=== PATIENT | female | born 1980 | race American Indian/Alaskan Native ===

== ENCOUNTER 2019-01-16 18:14 | Emergency (ER) | payer OTHER ==
--- NOTE | 2019-01-16 19:05 | Event Note ---
ED Screening Note Date of service: 01/16/19 Time: 18:56 ED Screening Note: 38 y/o female comes in for HTN and SOB. Hx/o thyroid, HTN This initial assessment/diagnostic orders/clinical plan/treatment(s) is/are subject to change based on patients health status, clinical progression and re-assessment by fellow clinical providers in the ED. Further treatment and workup at subsequent clinical providers discretion. Patient/guardian urged not to elope from the ED as their condition may be serious if not clinically assessed and managed. Initial orders include:
--- NOTE | 2019-01-16 19:26 | XRay Report ---
CHEST 2 VIEWS INDICATION / CLINICAL INFORMATION: sob. COMPARISON: None available. FINDINGS: SUPPORT DEVICES: None. HEART / MEDIASTINUM: Cardiac silhouette is enlarged with normal pulmonary vascularity LUNGS / PLEURA: No significant pulmonary or pleural abnormality. No pneumothorax. ADDITIONAL FINDINGS: No significant additional findings. IMPRESSION: 1. Cardiomegaly without CHF Signer Name: Edison Gold MD Signed: 01/16/2019 7:22 PM Workstation Name: [id number]
[2019-01-16 19:47] LABS: Alanine Aminotransferase 87 units/L (7-56); Albumin 4.2 g/dL (3.9-5); BUN/Creatinine Ratio 13; Basophils # (Auto) 0.1 K/mm3 (0.0-0.1); Basophils % (Auto) 1.2 % (0.0-1.8); Blood Urea Nitrogen 9 mg/dL (7-17); Calcium 9.8 mg/dL (8.4-10.2); Eosinophils # (Auto) 0.3 K/mm3 (0.0-0.4); Eosinophils % (Auto) 3.5 % (0.0-4.3); Hematocrit 32.3 % (30.3-42.9); Hemoglobin 10.4 gm/dl (10.1-14.3); Hemolysis Index 9; Lymphocytes # (Auto) 3.1 K/mm3 (1.2-5.4); Lymphocytes % (Auto) 36.2 % (13.4-35.0); Mean Corpuscular HGB Conc 32 % (30-34); Mean Corpuscular Volume 74 fl (79-97); Monocytes # (Auto) 0.5 K/mm3 (0.0-0.8); Monocytes % (Auto) 6.2 % (0.0-7.3); Platelet Count 356 K/mm3 (140-440); Red Blood Count 4.35 M/mm3 (3.65-5.03); Red Cell Distribution Width 17.9 % (13.2-15.2)
[2019-01-16] MEDS ORDERED: IBUPROFEN PO ONE (20:57)
[2019-01-16] MEDS ORDERED: NORVASC PO ONE (20:57)
--- NOTE | 2019-01-16 21:02 | Emergency Department Report ---
HPI - General Chief Complaint: High BP Time Seen by Provider: 01/16/19 19:28 - HPI HPI: 38-year-old female presents to the emergency department with complaint of some elevated blood pressure over the past 2 days. It is associated with a mild throbbing headache. Patient says that she has never been diagnosed with hypertension but was on HCTZ one time in the past secondary to some lower extremity swelling and "fluid around my heart." She has since been taken off that medication. The patient has a previous history of hyperthyroidism received some radiation therapy for that and now is hypothyroid on 250 g of Synthroid. Patient says that her blood pressure reached a max of 150/132 but improves when she is laying down and resting and goes back up with any type of exertion or activity. Her primary care physician is a Dr. Maria A Echeverria and she has an appointment on March 03. The patient has not taken anything for her symptoms prior to presentation today. No recent travel or sick contacts at home. She denies any tobacco or illicit drug use. ED Past Medical Hx - Past Medical History Previous Medical History?: Yes Additional medical history: hyperthyroid turned hypothyriod due to radiation - Surgical History Past Surgical History?: No - Social History Smoking Status: Never Smoker Substance Use Type: None - Medications Home Medications: Home Medications Medication Instructions Recorded Confirmed Last Taken Type amLODIPine [Norvasc] 5 mg PO DAILY #30 tab 01/16/19 Unknown Rx ED Review of Systems ROS: Stated complaint: HYPERTENSION Other details as noted in HPI Comment: All other systems reviewed and negative Constitutional: denies: chills, fever Eyes: denies: eye pain, vision change ENT: denies: ear pain, throat pain Respiratory: denies: cough, shortness of breath Cardiovascular: denies: palpitations, edema Gastrointestinal: denies: abdominal pain, vomiting Genitourinary: denies: urgency, dysuria Musculoskeletal: denies: back pain, arthralgia Skin: denies: rash, lesions Neurological: headache. denies: weakness, numbness, paresthesias, confusion Physical Exam - Physical Exam Vital Signs: Vital Signs 01/16/19 01/16/19 19:02 20:48 Temperature 98.2 F Pulse Rate 100 H 87 Respiratory 16 16 Rate Blood Pressure 137/104 129/87 [Right] O2 Sat by Pulse 99 99 Oximetry Physical Exam: GENERAL: The patient is well-developed well-nourished. HENT: Normocephalic. Atraumatic. Patient has moist mucous membranes. EYES: Extraocular motions are intact. Pupils equal reactive to light bilaterally. NECK: Supple. Trachea is midline. CHEST/LUNGS: Clear to auscultation. There is no respiratory distress noted. HEART/CARDIOVASCULAR: Regular. There is no tachycardia. There is no murmur. ABDOMEN: Abdomen is soft, nontender. Patient has normal bowel sounds. There is no abdominal distention. SKIN: Skin is warm and dry. No lower extremity edema. NEURO: The patient is awake, alert, and oriented. The patient is cooperative. The patient has no focal neurologic deficits. The patient has normal speech. Cranial nerves II through XII grossly intact. MUSCULOSKELETAL: There is no tenderness or deformity. There is no limitation r codey of motion. There is no evidence of acute injury. ED Course Vital Signs 01/16/19 01/16/19 19:02 20:48 Temperature 98.2 F Pulse Rate 100 H 87 Respiratory 16 16 Rate Blood Pressure 137/104 129/87 [Right] O2 Sat by Pulse 99 99 Oximetry ED Medical Decision Making - Lab Data Result diagrams: 01/16/19 19:11 01/16/19 19:11 - EKG Data -: EKG Interpreted by Pa EKG shows normal: sinus rhythm, axis, intervals, QRS complexes (Q waves to the septal leads), ST-T waves Rate: normal - EKG Data When compared to previous EKG there are: previous EKG unavailable Interpretation: other (Q waves to the septal leads) - Medical Decision Making This patient was sent to the emergency department with a complaint of a few days of some elevated blood pressure readings. She does have some questionable previous history of hypertension. She complains of a very mild headache. No signs of any focal, motor or sensory deficits and her cranial nerves are intact. Labs have been unremarkable including no significant thyroid dysfunction. EKG did not show any signs of ST elevation [place] or dysrhythmia. Patient was given a dose of amlodipine and some ibuprofen and upon reevaluation she is asymptomatic. Her blood pressure came down to a normal level. For all these reasons, the p atient appears safe for discharge home. She has good follow-up with primary care. She will be started on a medium dose of Norvasc and will keep a blood pressure log. She will return to the emergency Department with any worsening of her symptoms or any acute distress. - Differential Diagnosis hypertension, tension headache, migraine, subarachnoid Critical Care Time: No Critical care attestation.: If time is entered above; I have spent that time in minutes in the direct care of this critically ill patient, excluding procedure time. ED Disposition Clinical Impression: Elevated blood pressure reading, Hypertension Disposition: TO HOME OR SELFCARE Is pt being admited?: No Condition: Stable Instructions: Hypertension (ED) Additional Instructions: Please follow-up with your primary care physician in the next few days. Return to the emergency Department with any worsening of your symptoms or any acute distress. I am starting on a blood pressure medication called Norvasc/amlodipine with a medium dose of 5 mg. This medication is taken once daily, usually in the morning. Keep a blood pressure log. Prescriptions: amLODIPine [Norvasc] 5 mg PO DAILY #30 tab Referrals: ANDREW ECHEVERRIA MD [Referring] - 2-3 Days Forms: Work/School Release Form(ED) Time of Disposition: 22:54
[2019-01-16 23:14] VITALS: BP 121/88
== END 2019-01-16 23:09 | disposition home or self-care (01) ==
LOC: ED 18:14
DX: I10 Essential (primary) hypertension (principal); Z88.1 Allergy status to other antibiotic agents
CPT/HCPCS: 36415; 71046; 80053; 83880; 84439; 84443; 84484; 85025; 93005; 93010

== ENCOUNTER 2019-09-21 17:47 | Emergency (ER) | payer SELFPAY ==
[2019-09-21] MEDS ORDERED: ALPRAZolam 0.5 MG TAB PO ONE (20:18)
[2019-09-21] MEDS ORDERED: ACETAMINOPHEN 325 MG TAB PO ONE (20:18)
[2019-09-21] MEDS ORDERED: IBUPROFEN 600 MG TAB PO ONE (20:18)
--- NOTE | 2019-09-21 20:19 | Emergency Department Report ---
ED General Adult HPI - General Chief complaint: Anxiety Stated complaint: CHEST PAIN/ANXIETY ATTACK Time Seen by Provider: 09/21/19 20:09 Source: patient, RN notes reviewed, old records reviewed Mode of arrival: Ambulatory Limitations: No Limitations - History of Present Illness Initial comments: The patient is a 38-year-old female. She is not known to myself previously. She follows with a Dr. Hammer. She is currently on Synthroid, and recently had her dose increased to 300 mcg daily. She has a history of obesity, anxiety, and possible elevated blood pressure. She presents to the ER with a complaint of nontraumatic left-sided chest wall pressure and discomfort, anxiety. There is no vomiting, diaphoresis. She is not , and has not delivered or given within the past 6 weeks. She denies DVT and pulmonary embolism risk factors. She saw her primary care doctor last month for her thyroid. She does get at least 8 hours of sleep per day, but reports consuming caffeine and energy drinks occasionally. She denies fever, nausea, vomiting, abdominal pain, urinary symptoms, she is not homicidal, she is not suicidal, chest wall pain is sharp, throbbing and aching, increases with palpation, range of motion, and it decreases with rest. -: Gradual, days(s) Location: chest Radiation: other Quality: other Consistency: other Improves with: other Worsens with: other Associated Symptoms: other - Related Data Previous Rx's Medication Instructions Recorded Last Taken Type amLODIPine [Norvasc] 5 mg PO DAILY #30 tab 01/16/19 Unknown Rx Allergies Allergy/AdvReac Type Severity Reaction Status Date / Time ciprofloxacin [From Cipro] Allergy Angioedema Verified 09/21/19 17:57 ED Review of Systems ROS: Stated complaint: CHEST PAIN/ANXIETY ATTACK Other details as noted in HPI Constitutional: denies: fever Eyes: denies: eye discharge ENT: denies: congestion Respiratory: denies: shortness of breath Cardiovascular: other (No syncope . Chest wall pain,) Gastrointestinal: denies: nausea, vomiting Genitourinary: as per HPI Musculoskeletal: as per HPI Skin: as per HPI Neurological: as per HPI Psychiatric: as per HPI, anxiety. denies: auditory hallucinations, visual hallucinations, homicidal thoughts, suicidal thoughts Hematological/Lymphatic: as per HPI ED Past Medical Hx - Past Medical History Previous Medical History?: Yes Additional medical history: hyperthyroid turned hypothyriod due to radiation - Surgical History Past Surgical History?: No - Social History Smoking Status: Never Smoker Substance Use Type: None - Medications Home Medications: Home Medications Medication Instructions Recorded Confirmed Last Taken Type amLODIPine [Norvasc] 5 mg PO DAILY #30 tab 01/16/19 Unknown Rx ED Physical Exam - General Limitations: No Limitations General appearance: alert, anxious, obese - Head Head exam: Present: atraumatic, normocephalic - Eye Eye exam: Present: normal appearance, EOMI, other (Visual acuity intact to finger counting, color perception, reading at a close distance). Absent: nystagmus - ENT ENT exam: Present: normal exam, normal orophraynx, mucous membranes moist, normal external ear exam - Neck Neck exam: Present: normal inspection, full ROM. Absent: tenderness, meningismus - Respiratory Respiratory exam: Present: normal lung sounds bilaterally, chest wall tenderness, other (During the entire history and physical examination, application security developer/escorted by nurse Barb Sargent). Absent: respiratory distress, wheezes, rales, rhonchi, stridor - Cardiovascular Cardiovascular Exam: Present: regular rate, normal rhythm, normal heart sounds. Absent: bradycardia, tachycardia, irregular rhythm, systolic murmur, diastolic murmur, rubs, gallop - GI/Abdominal GI/Abdominal exam: Present: soft, normal bowel sounds. Absent: distended, tenderness, guarding, rebound, rigid, pulsatile mass - Extremities Exam Extremities exam: Present: normal inspection, full ROM, other (2+ pulses noted in the bilateral upper and lower extremities. There is no palpable cord. negative Homans sign. Muscular compartments are soft. The pelvis is stable.). Absent: pedal edema, joint swelling, calf tenderness - Back Exam Back exam: Present: normal inspection, full ROM. Absent: tenderness, CVA tenderness (R), CVA tenderness (L), paraspinal tenderness, vertebral tenderness - Neurological Exam Neurological exam: Present: alert, oriented X3, normal gait, other (There is no facial droop. The tongue is midline. Extraocular movements are intact bilaterally. There is 5 out of 5 strength in bilateral upper and lower extremities. Sensation is intact to light touch bilateral upper and lower extremities. There is a normal gait.). Absent: motor sensory deficit - Psychiatric Psychiatric exam: Present: anxious. Absent: homicidal ideation, suicidal ideation - Skin Skin exam: Present: warm, dry, intact, normal color. Absent: rash ED Course Vital Signs 09/21/19 09/21/19 17:52 20:19 Temperature 97.7 F Pulse Rate 80 73 Respiratory 18 16 Rate Blood Pressure 145/92 120/84 O2 Sat by Pulse 100 100 Oximetry ED Medical Decision Making - Lab Data Vital Signs 09/21/19 09/21/19 17:52 20:19 Temperature 97.7 F Pulse Rate 80 73 Respiratory 18 16 Rate Blood Pressure 145/92 120/84 O2 Sat by Pulse 100 100 Oximetry - EKG Data 09/21/19 20:57 EKG today is unchanged from prior EKG from January 2019 Sinus rhythm, 68 bpm, normal axis, normal intervals, motion artifact, unchanged from prior EKG, not a STEMI - Medical Decision Making Differential diagnosis, including but not limited to: Anxiety, costochondritis Assessment and plan: 38-year-old female, with no DVT or pulmonary embolism risk factors, who is low risk by Wells criteria, who is not currently tachycardic, ta chypneic, or hypoxic, perc negative, with a complaint of anxiety, and reproducible chest wall pain. EKG is unchanged from prior. Her chest wall pain is reproducible without evidence of redness, pus or streaking. She is not homicidal or suicidal, she is clinically sober, alert and oriented x3, walking with a steady gait, and exhibits decision-making capacity. Explained to the patient that she likely has costochondritis. We discussed NSAIDs and Tylenol as needed for pain. The patient presented to this hospital for similar presentation in January 2019, and had an unremarkable cardiac re-stratification while in the emergency room. In terms of the patient's anxiety, we offered to treat her symptoms with Xanax. Educated patient's that there is no emergency room indication for thyroid screen ing tests at this time, as her symptoms are not consistent with symptomatic hypothyroidism, and she also reported having her thyroid checked last month by her primary care doctor, and had her Synthroid increased. The patient does not appear to have an emergency medical condition at this time. She left the emergency room prior to receiving her paperwork. Critical care attestation.: If time is entered above; I have spent that time in minutes in the direct care of this critically ill patient, excluding procedure time. ED Disposition Clinical Impression: Chest wall pain, History of anxiety, History of hypothyroidism Disposition: DC-01 TO HOME OR SELFCARE Is pt being admited?: No Does the pt Need Aspirin: No Condition: Stable Additional Instructions: Patient may take [id number] Tylenol, 650 mg by mouth, every 4-6 hours, as needed for pain, alternating with ibuprofen, 600 mg by mouth, every 6 hours with food, as needed for pain. We recommend that the patient continue her current outpatient medications, and follow-up with her primary care doctor within the next 2 to 4 weeks. Please return to the emergency room right away with new, worsened or different symptoms, or symptoms not present on the initial emergency room evaluation. Referrals: DIMPLE HAMMER SR, MD [Referring] - as needed MEHRAN CEBALLOS MD [Staff Physician] - as needed
[2019-09-21 20:21] VITALS: BP 120/84
== END 2019-09-21 21:00 | disposition home or self-care (01) ==
LOC: ED 17:47
DX: R07.89 Other chest pain (principal); F41.9 Anxiety disorder, unspecified; E03.9 Hypothyroidism, unspecified
CPT/HCPCS: 93005; 93010; 99283

== ENCOUNTER 2020-10-24 12:47 | Emergency (ER) | payer BC ==
--- NOTE | 2020-10-24 14:04 | Event Note ---
ED Screening Note Date of service: 10/24/20 Time: 14:01 ED Screening Note: 39 y/o female pt w/ hx of uterine fibroids, anemia requiring blood transfusion, hyperthyroidism, and venous thromboembolism (not currently anticoagulated) presents to the emergency department with complaints of painless vaginal bleeding x2 days. PCP instructed pt to come to the ER. Endorses generalized weakness. State her symptoms are reminiscent of when she was previously hospitalized for anemia. Menstrual cycles irregular at baseline. General: Awake, appropriately interactive, no acute distress. Neck: Supple. Full range of motion intact. Cardiovascular: Normal peripheral perfusion. Pulmonary: No respiratory distress. Patient is speaking normally without use of accessory muscles. Skin: No apparent rashes or lesions. Neurological: No facial asymmetry. Speech is clear. Follows commands. Patient is alert and oriented. Musculoskeletal: Moves all four extremities spontaneously with normal range of motion. Psych: Cooperative. Appropriate mood and affect. I have greeted and performed a focused rapid initial assessment of this patient. A comprehensive ED assessment and evaluation of the patient, analysis of all test results, and completion of the medical decision-making process will be conducted by additional ED providers. This initial assessment/diagnostic orders/clinical plan/treatment(s) is/are subject to change based on patients health status, clinical progression and re-assessment. Further treatment and workup at subsequent clinical provider's discretion. Patient/guardian urged not to elope from the ED as their condition may be serious if not clinically assessed and managed.
[2020-10-24 14:57] VITALS: BP 141/92
[2020-10-24 15:03] LABS: Basophils # (Auto) 0.1 K/mm3 (0.0-0.1); Eosinophils # (Auto) 0.4 K/mm3 (0.0-0.4); Eosinophils % (Auto) 4.8 % (0.0-4.3); INR 0.98 (0.87-1.13); Monocytes # (Auto) 0.3 K/mm3 (0.0-0.8); Monocytes % (Auto) 3.1 % (0.0-7.3)
--- NOTE | 2020-10-24 15:03 | Emergency Department Report ---
HPI - General Chief Complaint: Vaginal Bleeding Time Seen by Provider: 10/24/20 14:30 - HPI HPI: This is a 39-year-old female who presents to the emergency department with complaint of a 2-day history of heavy vaginal bleeding with some clots. The patient also has some mild pelvic cramping. Patient says that she was admitted to [facility] for 4 days, about 6 months ago, for issues regarding heavy vaginal bleeding. However the patient is unsure what the ultimate diagnosis was. She says that she had some low hemoglobin at that time but "they were able to get my levels back up before they had to give me a transfusion." Patient does admit to a history of anemia. She also has a history of [id number] diabetes and hypothyroidism. She called and spoke with her primary care physician, Dr. Iglesias, regarding this vaginal bleeding and was told to come to the emergency department for further evaluation. She denies any fever, chest pain or shortness of breath, lower extremity swelling, vaginal discharge, dysuria, rectal bleeding. She does admit to some generalized weakness and/or fatigue. She has not taken anything for symptoms prior to presentation. The patient says that she has not had a menstrual cycle in about 6 months secondary to her thyroid issues. 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 - Surgical History Past Surgical History?: Yes Additional Surgical History: Thyroid - Social History Smoking Status: Former Smoker Substance Use Type: None - Medications Home Medications: Home Medications Medication Instructions Recorded Confirmed Last Taken Type amLODIPine [Norvasc] 5 mg PO DAILY #30 tab 01/16/19 Unknown Rx Nitrofurantoin [place]/M-Cryst 100 mg PO Q12HR #14 capsule 10/24/20 Unknown Rx [Macrobid CAP] medroxyPROGESTERone ACETATE 10 mg PO QDAY #7 tablet 10/24/20 Unknown Rx [Provera] ED Review of Systems ROS: Stated complaint: VAGINAL BLEEDING Other details as noted in HPI Comment: All other systems reviewed and negative Constitutional: weakness. denies: chills, fever Eyes: denies: eye pain, vision change ENT: denies: ear pain, throat pain Respiratory: denies: cough, shortness of breath Cardiovascular: denies: chest pain, palpitations Gastrointestinal: denies: abdominal pain, vomiting Genitourinary: abnormal menses, other (Pelvic cramping). denies: dysuria, discharge Musculoskeletal: denies: back pain, arthralgia Skin: denies: rash, lesions Neurological: denies: headache, weakness Physical Exam - Physical Exam Vital Signs: Vital Signs 10/24/20 10/24/20 14:01 14:55 Temperature 98 F 968 F H Pulse Rate 63 71 Respiratory 20 13 Rate Blood Pressure 135/103 Blood Pressure 141/92 [Right] O2 Sat by Pulse 99 100 Oximetry Physical Exam: GENERAL: The patient is well-developed well-nourished. HENT: Normocephalic. Atraumatic. Patient has moist mucous membranes. EYES: Extraocular motions are intact. NECK: Supple. Trachea is midline. CHEST/LUNGS: Clear to auscultation. There is no respiratory distress noted. HEART/CARDIOVASCULAR: Regular. There is no tachycardia. There is no murmur. ABDOMEN: Abdomen is soft, nontender. Patient has normal bowel sounds. There is no abdominal distention. SKIN: Skin is warm and dry. NEURO: The patient is awake, alert, and oriented. The patient is cooperative. The patient has no focal neurologic deficits. Normal speech. MUSCULOSKELETAL: There is no tenderness or deformity. There is no limitation range of motion. ED Course Vital Signs 10/24/20 10/24/20 14:01 14:55 Temperature 98 F 968 F H Pulse Rate 63 71 Respiratory 20 13 Rate Blood Pressure 135/103 Blood Pressure 141/92 [Right] O2 Sat by Pulse 99 100 Oximetry ED Medical Decision Making - Lab Data Result diagrams: 10/24/20 14:32 10/24/20 14:32 Lab Results 10/24/20 10/24/20 10/24/20 Range/Units 14:32 14:32 14:32 WBC 9.2 (4.5-11.0) K/mm3 RBC 4.67 (3.65-5.03) M/mm3 Hgb 11.2 (10.1-14.3) gm/dl Hct 34.3 (30.3-42.9) % MCV 73 L (79-97) fl MCH 24 L (28-32) pg MCHC 33 (30-34) % RDW 16.6 H (13.2-15.2) % Plt Count 413 (140-440) K/mm3 Lymph % (Auto) 33.2 (13.4-35.0) % [place] % (Auto) 3.1 (0.0-7.3) % Eos % (Auto) 4.8 H (0.0-4.3) % Baso % (Auto) 1.2 (0.0-1.8) % Lymph # (Auto) 3.1 (1.2-5.4) K/mm3 [place] # (Auto) 0.3 (0.0-0.8) K/mm3 Eos # (Auto) 0.4 (0.0-0.4) K/mm3 Baso # (Auto) 0.1 (0.0-0.1) K/mm3 Seg Neutrophils % 57.7 (40.0-70.0) % Seg Neutrophils # 5.3 (1.8-7.7) K/mm3 PT 12.9 (12.2-14.9) Sec. INR 0.98 (0.87-1.13) APTT 29.5 (24.2-36.6) Sec. Sodium 138 (137-145) mmol/L Potassium 3.6 (3.6-5.0) mmol/L Chloride 103.9 (98-107) mmol/L Carbon Dioxide 25 (22-30) mmol/L Anion Gap 13 mmol/L BUN 7 (7-17) mg/dL Creatinine 0.8 (0.6-1.2) mg/dL Estimated GFR > 60 ml/min BUN/Creatinine Ratio 9 % Glucose 131 H (65-100) mg/dL Calcium 8.8 (8.4-10.2) mg/dL Total Bilirubin 0.20 (0.1-1.2) mg/dL AST 26 (5-40) units/L ALT 26 (7-56) units/L Alkaline Phosphatase 72 (35-129) units/L Total Protein 7.6 (6.3-8.2) g/dL Albumin 4.0 (3.9-5) g/dL Albumin/Globulin Ratio 1.1 % TSH (0.270-4.200) mlU/mL HCG, Qual (Negative) Urine Color (Yellow) Urine Turbidity (Clear) Urine pH (5.0-7.0) Ur Specific [place] (1.003-1.030) Urine Protein (Negative) mg/dL Urine Glucose (UA) (Negative) mg/dL Urine Ketones (Negative) mg/dL Urine Blood (Negative) Urine Nitrite (Negative) Urine Bilirubin (Negative) Urine Urobilinogen (<2.0) mg/dL Ur Leukocyte Esterase (Negative) Urine WBC (Auto) (0.0-6.0) /HPF Urine RBC (Auto) (0.0-6.0) /HPF U Epithel Cells (Auto) (0-13.0) /HPF Urine Mucus /HPF Urine Yeast (Budding) /HPF Blood Type Antibody Screen 10/24/20 10/24/20 10/24/20 Range/Units 14:32 14:32 15:05 WBC (4.5-11.0) K/mm3 RBC (3.65-5.03) M/mm3 Hgb (10.1-14.3) gm/dl Hct (30.3-42.9) % MCV (79-97) fl MCH (28-32) pg MCHC (30-34) % RDW (13.2-15.2) % Plt Count (140-440) K/mm3 Lymph % (Auto) (13.4-35.0) % [place] % (Auto) (0.0-7.3) % Eos % (Auto) (0.0-4.3) % Baso % (Auto) (0.0-1.8) % Lymph # (Auto) (1.2-5.4) K/mm3 [place] # (Auto) (0.0-0.8) K/mm3 Eos # (Auto) (0.0-0.4) K/mm3 Baso # (Auto) (0.0-0.1) K/mm3 Seg Neutrophils % (40.0-70.0) % Seg Neutrophils # (1.8-7.7) K/mm3 PT (12.2-14.9) Sec. INR (0.87-1.13) APTT (24.2-36.6) Sec. Sodium (137-145) mmol/L Potassium (3.6-5.0) mmol/L Chloride (98-107) mmol/L Carbon Dioxide (22-30) mmol/L Anion Gap mmol/L BUN (7-17) mg/dL Creatinine (0.6-1.2) mg/dL Estimated GFR ml/min BUN/Creatinine Ratio % Glucose (65-100) mg/dL Calcium (8.4-10.2) mg/dL Total Bilirubin (0.1-1.2) mg/dL AST (5-40) units/L ALT (7-56) units/L Alkaline Phosphatase (35-129) units/L Total Protein (6.3-8.2) g/dL Albumin (3.9-5) g/dL Albumin/Globulin Ratio % TSH 79.370 H (0.270-4.200) mlU/mL HCG, Qual Negative (Negative) Urine Color (Yellow) Urine Turbidity (Clear) Urine pH (5.0-7.0) Ur Specific [place] (1.003-1.030) Urine Protein (Negative) mg/dL Urine Glucose (UA) (Negative) mg/dL Urine Ketones (Negative) mg/dL Urine Blood (Negative) Urine Nitrite (Negative) Urine Bilirubin (Negative) Urine Urobilinogen (<2.0) mg/dL Ur Leukocyte Esterase (Negative) Urine WBC (Auto) (0.0-6.0) /HPF Urine RBC (Auto) (0.0-6.0) /HPF U Epithel Cells (Auto) (0-13.0) /HPF Urine Mucus /HPF Urine Yeast (Budding) /HPF Blood Type B POSITIVE Antibody Screen Negative 10/24/20 Range/Units Unknown WBC (4.5-11.0) K/mm3 RBC (3.65-5.03) M/mm3 Hgb (10.1-14.3) gm/dl Hct (30.3-42.9) % MCV (79-97) fl MCH (28-32) pg MCHC (30-34) % RDW (13.2-15.2) % Plt Count (140-440) K/mm3 Lymph % (Auto) (13.4-35.0) % [place] % (Auto) (0.0-7.3) % Eos % (Auto) (0.0-4.3) % Baso % (Auto) (0.0-1.8) % Lymph # (Auto) (1.2-5.4) K/mm3 [place] # (Auto) (0.0-0.8) K/mm3 Eos # (Auto) (0.0-0.4) K/mm3 Baso # (Auto) (0.0-0.1) K/mm3 Seg Neutrophils % (40.0-70.0) % Seg Neutrophils # (1.8-7.7) K/mm3 PT (12.2-14.9) Sec. INR (0.87-1.13) APTT (24.2-36.6) Sec. Sodium (137-145) mmol/L Potassium (3.6-5.0) mmol/L Chloride (98-107) mmol/L Carbon Dioxide (22-30) mmol/L Anion Gap mmol/L BUN (7-17) mg/dL Creatinine (0.6-1.2) mg/dL Estimated GFR ml/min BUN/Creatinine Ratio % Glucose (65-100) mg/dL Calcium (8.4-10.2) mg/dL Total Bilirubin (0.1-1.2) mg/dL AST (5-40) units/L ALT (7-56) units/L Alkaline Phosphatase (35-129) units/L Total Protein (6.3-8.2) g/dL Albumin (3.9-5) g/dL Albumin/Globulin Ratio % TSH (0.270-4.200) mlU/mL HCG, Qual (Negative) Urine Color Yellow (Yellow) Urine Turbidity Slightly-cloudy (Clear) Urine pH 5.0 (5.0-7.0) Ur Specific [place] 1.014 (1.003-1.030) Urine Protein 30 mg/dl (Negative) mg/dL Urine Glucose (UA) Neg (Negative) mg/dL Urine Ketones Neg (Negative) mg/dL Urine Blood Lg (Negative) Urine Nitrite Pos (Negative) Urine Bilirubin Neg (Negative) Urine Urobilinogen < 2.0 (<2.0) mg/dL Ur Leukocyte Esterase Sm (Negative) Urine WBC (Auto) 67.0 H (0.0-6.0) /HPF Urine RBC (Auto) > 182.0 (0.0-6.0) /HPF U Epithel Cells (Auto) 1.0 (0-13.0) /HPF Urine Mucus Few /HPF Urine Yeast (Budding) 1+ /HPF Blood Type Antibody Screen - Radiology Data Radiology results: report reviewed PELVIC ULTRASOUND INDICATION: pelvic cramping, heavy vaginal bleeding COMPARISON: None pertinent available TECHNIQUE: Transabdominal and endovaginal FINDINGS: Uterus measures 10.3 x 5.7 x 0.8 cm. Endometrial stripe measures 6 mm. No fluid is seen within the endometrial canal. In the uterine fundus a 2.5 cm leiomyoma is seen. In the lower fundal region post yearly and centrally small hyperechoic area is seen which could be a small calcified leiomyoma and measures only 9 mm. Right ovary measures 5.7 cm in length on endovaginal study but I believe this measurement includes nonovarian tissue. On transabdominal study this measurement was 3.8 cm. Minimal mildly complex cystic area is seen measuring only 13 mm. The left ovary is not visualized by endovaginal study. On transabdominal study left ovary is seen in poor detail. This appears to measure approximately 3 cm with no definite focal lesions. No free fluid is seen. IMPRESSION: Small uterine leiomyomata - Medical Decision Making This patient presents to the emergency department with a complaint of 2 days of heavy vaginal bleeding with clots. She also has some mild pelvic cramping. There was concern that the patient could have symptomatic and/or significant anemia secondary to her complaint of generalized weakness and fatigue, as well as some type of history of being admitted to [facility] for alleged similar issues. However her hemoglobin came back at 11.2. Normal coags. Normal metabolic panel. The patient has a history of hypothyroidism for which she is on 200 mcg of Synthroid daily, but she appears to have continued or unregulated hypothyroidism with a TSH of about 75. This is most likely the reason for the patient's complaint of generalized weakness and fatigue. With a hemoglobin of 11.2 the patient does not require any transfusion or iron supplementation at this time. She had a transvaginal/pelvic ultrasound to look into possible source of the dysfunctional uterine bleeding. She has a very small fibroid which may exacer ti what is going on but I do not believe it is the sole reason for her recent increased vaginal bleeding. She says that she has good outpatient follow-up with primary care and an [facility]. The patient will be placed on Provera for 7 days. Urinalysis also shows a urinary tract infection for which the patient will be placed on Macrobid. Vital signs have been reassuring throughout her ED course including being afebrile. All of the lab and imaging results have been discussed with the patient, as well as the plan for outpatient follow-up with these prescriptions. She understands and agrees to the plan and all questions have been answered. Critical Care Time: No Critical care attestation.: If time is entered above; I have spent that time in minutes in the direct care of this critically ill patient, excluding procedure time. ED Disposition Clinical Impression: Abnormal uterine bleeding Hypothyroid Qualifiers: Hypothyroidism type: unspecified Qualified Code(s): E03.9 - Hypothyroidism, unspecified UTI (urinary tract infection) Qualifiers: Urinary tract infection type: acute cystitis Hematuria presence: with hematuria Qualified Code(s): N30.01 - Acute cystitis with hematuria Disposition: TO HOME OR SELFCARE Is pt being admited?: No Condition: Stable Instructions: Abnormal Uterine Bleeding, Hypothyroidism, Urinary Tract Infection, Adult Additional Instructions: Please follow-up with your primary care physician in the next few days. Please follow-up with an [facility] TE[facility]ER in the next 1 to 2 days regarding the abnormal vaginal bleeding. Return to the closest emergency department immediately with any increased bleeding, development of shortness of breath or chest pain, feeling as if you may pass out, or with any acute distress. Take the medications as prescribed. Prescriptions: Nitrofurantoin [place]/M-Cryst [Macrobid CAP] 100 mg PO Q12HR #14 capsule medroxyPROGESTERone ACETATE [Provera] 10 mg PO QDAY #7 tablet Referrals: OBANTHONYN, Your [Other] - JERO Forms: Work/School Release Form(ED) Time of Disposition: 18:16
[2020-10-24 15:04] LABS: Basophils % (Auto) 1.2 % (0.0-1.8); Hematocrit 34.3 % (30.3-42.9); Hemoglobin 11.2 gm/dl (10.1-14.3); Lymphocytes # (Auto) 3.1 K/mm3 (1.2-5.4); Lymphocytes % (Auto) 33.2 % (13.4-35.0); Mean Corpuscular HGB Conc 33 % (30-34); Mean Corpuscular Volume 73 fl (79-97); Partial Thromboplastin Time 29.5 Sec. (24.2-36.6); Platelet Count 413 K/mm3 (140-440); Red Blood Count 4.67 M/mm3 (3.65-5.03); Red Cell Distribution Width 16.6 % (13.2-15.2)
[2020-10-24 15:14] LABS: Alanine Aminotransferase 26 units/L (7-56); BUN/Creatinine Ratio 9; Blood Urea Nitrogen 7 mg/dL (7-17); Calcium 8.8 mg/dL (8.4-10.2); Hemolysis Index 4
--- NOTE | 2020-10-24 16:33 | Ultrasound Report ---
PELVIC ULTRASOUND INDICATION: pelvic cramping, heavy vaginal bleeding COMPARISON: None pertinent available TECHNIQUE: Transabdominal and endovaginal FINDINGS: Uterus measures 10.3 x 5.7 x 0.8 cm. Endometrial stripe measures 6 mm. No fluid is seen wit hin the endometrial canal. In the uterine fundus a 2.5 cm leiomyoma is seen. In the lower fundal douglas on post yearly and centrally small hyperechoic area is seen which could be a small calcified leiomyom a and measures only 9 mm. Right ovary measures 5.7 cm in length on endovaginal study but I believe this measurement includes no novarian tissue. On transabdominal study this measurement was 3.8 cm. Minimal mildly complex cystic a [place] is seen measuring only 13 mm. The left ovary is not visualized by endovaginal study. On transabdo moo study left ovary is seen in poor detail. This appears to measure approximately 3 cm with no def inite focal lesions. No free fluid is seen. IMPRESSION: Small uterine leiomyomata Signer Name: Valentín Omer MD Signed: 10/24/2020 4:28 PM Workstation Name: [id number]
[2020-10-24 18:32] LABS: Bilirubin,Urine NEG (Negative); Blood,Urine LG (Negative); Color,Urine Yellow (Yellow); Mucus,Urine FEW /HPF; Urobilinogen,Urine < 2.0 mg/dL (<2.0)
[2020-10-24 18:33] LABS: RBC,Urine > 182.0 /HPF (0.0-6.0)
== END 2020-10-24 19:40 | disposition home or self-care (01) ==
LOC: ED 12:47
DX: N39.0 Urinary tract infection, site not specified (principal); E03.9 Hypothyroidism, unspecified; N93.9 Abnormal uterine and vaginal bleeding, unspecified; E11.9 Type 2 diabetes mellitus without complications; Z98.890 Other specified postprocedural states; Z87.891 Personal history of nicotine dependence; Z79.899 Other long term (current) drug therapy; Z88.1 Allergy status to other antibiotic agents
CPT/HCPCS: 36415; 76830; 76856; 80053; 81001; 84443; 84703; 85025; 85610; 85730; 86850; 86900; 86901; 87076; 87086; 87186